=== PATIENT | female | born 1960 | race American Indian/Alaskan Native ===

== ENCOUNTER 2017-12-06 09:58 | Outpatient (CLI) | payer OTHER ==
[2017-12-06 11:00] LABS: Blood Urea Nitrogen 11 mg/dL (7-17)
== END 2017-12-06 09:59 | disposition home or self-care (01) ==
LOC: MRI 09:58
PROVIDERS: ATTEND Obstetrics & Gynecology
DX: R10.2 Pelvic and perineal pain (principal)
CPT/HCPCS: 36415; 82565; 84520